=== PATIENT | female | born 1990 | race Caucasian/White ===

== ENCOUNTER → 2023-10-25 13:40 | Outpatient (BNVA) | payer BC, MEDICAID, SELFPAY | PROVIDERS: Visit Provider Nurse Practitioner Women's Health | DX: Z32.00 Encounter for pregnancy test, result unknown (principal); N92.6 Irregular menstruation, unspecified | CPT/HCPCS: 81025 ==

== ENCOUNTER → 2023-11-23 14:22 | Outpatient (BNVA) | payer BC, MEDICAID, SELFPAY | PROVIDERS: Visit Provider Nurse Practitioner Women's Health | DX: Z36.87 Encounter for antenatal screening for uncertain dates (principal) | CPT/HCPCS: 76801 ==

== ENCOUNTER → 2023-11-29 12:56 | Outpatient (BNVA) | payer BC, MEDICAID, SELFPAY | PROVIDERS: Visit Provider Nurse Practitioner Women's Health | DX: Z34.90 Encounter for supervision of normal pregnancy, unspecified, unspecified trimester (principal); Z34.80 Encounter for supervision of other normal pregnancy, unspecified trimester | CPT/HCPCS: 80307; 81000; 85025; 86592; 86762; 86803; 86850; 86900; 87086; 87340; 87806 ==

== ENCOUNTER → 2023-12-28 08:02 | Outpatient (BNVA) | payer BC, MEDICAID, SELFPAY | PROVIDERS: Visit Provider Obstetrics & Gynecology | DX: Z34.80 Encounter for supervision of other normal pregnancy, unspecified trimester (principal) | CPT/HCPCS: 84315; 87491; 87591; 88175 ==

== ENCOUNTER → 2024-01-18 09:12 | Outpatient (BNVA) | payer BC, MEDICAID, SELFPAY | PROVIDERS: Visit Provider Obstetrics & Gynecology | DX: Z34.82 Encounter for supervision of other normal pregnancy, second trimester (principal) | CPT/HCPCS: 76805 ==

== ENCOUNTER → 2024-02-15 10:27 | Outpatient (BNVA) | payer BC, MEDICAID, SELFPAY | PROVIDERS: Visit Provider Obstetrics & Gynecology | DX: Z34.80 Encounter for supervision of other normal pregnancy, unspecified trimester (principal) | CPT/HCPCS: 76816 ==

== ENCOUNTER → 2024-03-11 08:37 | Outpatient (BNVA) | payer BC, MEDICAID, SELFPAY | PROVIDERS: Visit Provider Obstetrics & Gynecology | DX: Z34.80 Encounter for supervision of other normal pregnancy, unspecified trimester (principal) | CPT/HCPCS: 84315; 85025 ==

== ENCOUNTER → 2024-03-14 09:33 | Outpatient (BNVA) | payer BC, MEDICAID, SELFPAY | PROVIDERS: Visit Provider Obstetrics & Gynecology | DX: Z34.80 Encounter for supervision of other normal pregnancy, unspecified trimester (principal) | CPT/HCPCS: 82950 ==

== ENCOUNTER → 2024-04-23 11:41 | Outpatient (BNVA) | payer BC, MEDICAID, SELFPAY | PROVIDERS: Visit Provider Nurse Practitioner Women's Health | DX: Z34.80 Encounter for supervision of other normal pregnancy, unspecified trimester (principal) | CPT/HCPCS: 76816 ==

== ENCOUNTER → 2024-05-06 08:25 | Outpatient (BNVA) | payer BC, MEDICAID, SELFPAY | PROVIDERS: Visit Provider Obstetrics & Gynecology | DX: Z34.80 Encounter for supervision of other normal pregnancy, unspecified trimester (principal); F80.9 Developmental disorder of speech and language, unspecified | CPT/HCPCS: 84315; 87081 ==

== ENCOUNTER 2024-05-31 17:50 | Outpatient (CLI) | payer BC, MEDICAID, SELFPAY ==
[2024-05-31 17:50] VITALS: BMI 31.2
[2024-05-31 18:01] VITALS: BP 132/84; PULSE 92
[2024-05-31 18:20] LABS: Nitrazine Paper, PH Inconclusive
[2024-05-31 18:21] VITALS: BP 137/70; PULSE 96
[2024-05-31 18:28] LABS: Actim Prom Negative
[2024-05-31 18:42] VITALS: BP 122/66; PULSE 96
== END 2024-05-31 18:57 | disposition home or self-care (01) ==
LOC: OPOB 17:55 → OBGYN 17:56
PROVIDERS: Visit Provider Obstetrics & Gynecology
DX: O26.899 Other specified pregnancy related conditions, unspecified trimester (principal); Z3A.00 Weeks of gestation of pregnancy not specified; N89.8 Other specified noninflammatory disorders of vagina
CPT/HCPCS: 59025; 83986; 84112; 99211

== ENCOUNTER → 2024-06-06 10:04 | Outpatient (BNVA) | payer BC, MEDICAID, SELFPAY | PROVIDERS: Visit Provider Obstetrics & Gynecology | DX: Z34.80 Encounter for supervision of other normal pregnancy, unspecified trimester (principal) | CPT/HCPCS: 76819; 84315 ==

== ENCOUNTER 2024-06-07 15:27 | Inpatient (IN) | payer BC, MEDICAID, SELFPAY ==
[2024-06-07 11:11] VITALS: BP 115/71; PULSE 104
[2024-06-07 12:32] VITALS: BP 118/74; PULSE 88
[2024-06-07 12:47] VITALS: BP 124/75; PULSE 88
--- NOTE | 2024-06-07 13:01 | PM.OPHPUD ---
Labor & Delivery H&P Update Date of Procedure: June 07, 2024 Date H&P Performed: 06/06/24 H&P update information: I have reviewed H&P completed within last 30 days, I have examined patient prior to procedure and Changes to prior documentation as noted here (cervix: 5-6 cm dilation) Admission Diagnosis:
--- NOTE | 2024-06-07 13:09 | P.PN_ITS ---
Subjective Subjective: Ms. Dave is a 33 year old established patient with LMP of 09/01/2023, ERNESTO 06/01/2024 based off of 12 week dating ultrasound, placing her at 40-6/7 weeks Vitals/I&O/Wt Last Vital Signs Pulse 88 06/07/24 12:47 BP 124/75 06/07/24 12:47 Physical Exam Narrative: GA: Alert and oriented ?3. Lungs: Clear to auscultation bilaterally. Heart: Regular rhythm and rate. Abdomen: Gravid, full the height equals dates, nontender. 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 Extremities: no edema, no cyanosis, no calves pain. heart tracing: Basal rate: 140's bpm, Variability: moderate, Accelerations: present, Decelerations: absent, Contraction: [q3min]. A&P Assessment and plan (1) Term : Ms. Dave is a 33 year old established patient with LMP of 09/01/2023, ERNESTO 06/01/2024 based off of 12 week dating ultrasound, placing her at 40-5/7 weeks, came to labor and delivery with contractions pain. Cervix dilated to 5 to 6 cm. She is GBS positive and prophylactic antibiotic was ordered but the patient refused to receive prophylactic antibiotics for GBS. heart tracing category 1. Anticipate vaginal delivery Attestations Medical Necessity Statement*: In my professional opinion per admitting diagnosis. Coding Level of Care Code Acute Code for Chg Fwd Diagnoses Term Z34.90
[2024-06-07 14:44] VITALS: BMI 30.9
[2024-06-07 15:35] VITALS: BP 133/75; PULSE 82
[2024-06-07 15:55] VITALS: BP 135/76; PULSE 87
[2024-06-07 20:32] LABS: Basophils % 0.3 %; Eosinophils # 0.1 10^3/uL (0.0-0.8); Eosinophils % 0.9 %; Hematocrit 37.4 % (36-47); Lymphocytes # 1.2 10^3/uL (0.8-4.8); Lymphocytes % 15.6 %; Mean Corpuscular HGB Conc 32.1 g/dL (30-55); Mean Corpuscular Hemoglobin 27.6 pg (27-33); Mean Platelet Volume 10.5 fL (7.4-10.4); Monocytes # 0.7 10^3/uL (0.2-0.9); Monocytes % 8.4 %; Neutrophils # 5.88 10^3/uL (1.8-7.7); Neutrophils % 73.8 %; Nucleated Red Blood Cells % 0 %; Platelet Count 248 10^3/cmm (157-399); Red Blood Count 4.35 10^6/uL (3.85-5.65); Red Cell Distribution Width 13.2 % (12.1-15.1); White Blood Count 7.96 10^3/uL (3.29-11.43)
[2024-06-07 21:16] VITALS: BP 135/60; PULSE 105; TEMP 36.6
[2024-06-08] VITALS (15 sets, daily range): BP systolic 109–135; BP diastolic 56–78; PULSE 64–107; RESP 16; TEMP 36.7–37
--- NOTE | 2024-06-08 01:53 | PM.DELIVERY ---
Delivery Note: Date of delivery: June 08, 2024 Pre-delivery diagnoses: Term Post-delivery diagnoses: Term delivered Shoulder dystocia Procedure: Spontaneous vaginal delivery Delivering Physician: Dada Fernandez MD Estimated blood loss (mL): 300 Findings: Term female , weight 4155g, Apgars 8/9 Pre-Delivery Course: Ms. Dave is a 33 year old established patient with LMP of 09/01/2023, ERNESTO 06/01/2024 based off of 12 week dating ultrasound, placing her at 40-6/7 weeks who has been receiving [place] [facility]. She has been experiencing painful uterine contractions for the past 4 hours. The contractions are occurring at 4 minute intervals with approximately 30 second duration. She continues to feel movement between the contractions. She denies vaginal bleeding or rupture of membranes. CC: Onset of labor at term. HPI: Received appropriate care. Daily vitamins since start of care. labs have all been normal, including negative for HIV. She was found to positive for Group B Strep from screening at 36 weeks. She has gained approximately 27.11 lbs throughout the . She denies a history of HTN during . Glucose tolerance screening for gestational diabetes was negative. Delivery: The patient was noted to be complete and pushing, so was placed in the dorsal lithotomy position, prepped and draped in the usual sterile fashion for a vaginal delivery. Pt. Noted to have epidural anesthesia. At 0123 the patient delivered a viable term female infant weighing 4155 g with scores of 8 and 9 at one and five minutes, respectively. The vertex was delivered spontaneously over intact perineum. The patient was asked to push and the head delivered spontaneously in the CLAUDIA position, over an intact perineum. A nuchal cord was checked and none noted. A 5-second dystocia was noted that was resolved with the Júnior maneuver. The anterior shoulder delivered easily and the posterior shoulder followed. The remainder of the infant was easily delivered and the oropharynx and nasopharynx was bulb suctioned. The was noted to have spontaneous cry and spontaneous movement of all four extremities. The cord was clamped x 2 and cut and noted to have 2 arteries and one vein. The infant was passed to the mother's abdomen where nursing personnel were in attendance. Her blood sample was then obtained. The placenta delivered intact spontaneously and the uterus was explored. 20 units of Pitocin was placed in the IV bag to firm the uterus. Examination of the cervix and vaginal vault did not reveal any lacerations. A vaginal pack was then placed. Examination of the perineum showed first-degree laceration. The laceration was repaired with 3-0 Vicryl in the normal fashion in a running non locking fashion to reapproximate the laceration in layers. The vaginal pack was then removed. The patient tolerated this procedure well, and recovered in L&D with her in their LDR room. All sponge and needle counts were correct. Post-Delivery Status: Good and stable History History History 3 Term 2 0 Miscarriages/Ectopic 0 Living Children 2 A&P Assessment and plan (1) Term delivered: Plan observation Coding Level of Care Code Acute Code for Chg Fwd Diagnoses Term delivered O80
[2024-06-08] MEDS: ibuprofen 800 mg tablet PO ×3 (08:59→23:01)
[2024-06-08 15:03] LABS: Hematocrit 32.7 % (36-47); Mean Corpuscular HGB Conc 32.7 g/dL (30-55); Mean Corpuscular Hemoglobin 27.5 pg (27-33); Mean Corpuscular Volume 84.1 fl (85-98); Mean Platelet Volume 10.5 fL (7.4-10.4); Platelet Count 215 10^3/cmm (157-399); Red Blood Count 3.89 10^6/uL (3.85-5.65); Red Cell Distribution Width 13.2 % (12.1-15.1); White Blood Count 9.83 10^3/uL (3.29-11.43)
[2024-06-09 03:34] VITALS: BP 124/76; PULSE 76; RESP 16; TEMP 36.7
[2024-06-09 04:50] VITALS: BP 104/74; PULSE 86; RESP 16; TEMP 36.8; O2SAT 97
--- NOTE | 2024-06-09 10:31 | PM.OBGYDC ---
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 Dave is a 33 year old established patient with LMP of 09/01/2023, ERNESTO 06/01/2024 based off of 12 week dating ultrasound, placing her at 40-6/7 weeks. She came to labor and delivery in active labor, declined IV and prophylactic antibiotics for GBS. She progressed to have a spontaneous vaginal delivery without complications. She delivered a term female with a birthweight 4155 g and scores of 8 and 9. observation uneventful. She is afebrile hemodynamically stable day 1. Tolerating diet well. Ambulating without difficulty. She was counseled via a digital supervisor dimension warehouse in her phone regarding pelvic rest for 6 weeks (no sex, no tampons, no vaginal douches). Return to the emergency room if any fever, increased bleeding or pain. Her and her were also counseled regarding all methods of contraception, indications, contraindications, failure rate, risks, side effects and complications. Information Peripartum Data: Delivery Method: Vaginal Physical Exam Narrative: GA; alert and oriented x 3 HEENT: normal Breasts: engorged Nipples - skin intact Lungs; clear to auscultation Heart: regular rhythm, no murmurs. Abd: Appropriately tender. BS+. Uterine fundus below umbilicus. No Fundal Tenderness. Perineum: normal lochia. Extremities: no edema, no cyanosis, no tenderness. History History History 3 Term 2 0 Miscarriages/Ectopic 0 Living Children 2 Discharge Data Studies Completed and Pending Laboratory Results WBC 9.83 10^3/uL (3.29-11.43) 06/08/24 14:50 RBC 3.89 10^6/uL (3.85-5.65) 06/08/24 14:50 Hgb 10.70 g/dL (11.27-16.99) L 06/08/24 14:50 Hct 32.7 % (36-47) L 06/08/24 14:50 MCV 84.1 fl (85-98) L 06/08/24 14:50 MCH 27.5 pg (27-33) 06/08/24 14:50 MCHC 32.7 g/dL (30-55) 06/08/24 14:50 RDW 13.2 % (12.1-15.1) 06/08/24 14:50 Plt Count 215 10^3/cmm (157-399) 06/08/24 14:50 MPV 10.5 fL (7.4-10.4) H 06/08/24 14:50 Neut % (Auto) 73.8 % 06/07/24 19:46 Lymph % (Auto) 15.6 % 06/07/24 19:46 Graves % (Auto) 8.4 % 06/07/24 19:46 Eos % (Auto) 0.9 % 06/07/24 19:46 Baso % (Auto) 0.3 % 06/07/24 19:46 Neut # (Auto) 5.88 10^3/uL (1.8-7.7) 06/07/24 19:46 Lymph # (Auto) 1.2 10^3/uL (0.8-4.8) 06/07/24 19:46 Graves # (Auto) 0.7 10^3/uL (0.2-0.9) 06/07/24 19:46 Eos # (Auto) 0.1 10^3/uL (0.0-0.8) 06/07/24 19:46 Baso # (Auto) 0.0 10^3/uL (0.0-0.1) 06/07/24 19:46 Nucleated RBC % (auto) 0 % 06/07/24 19:46 Nucleated RBCs # 0.0 /100WBC 06/07/24 19:46 Blood Type O Positive 06/07/24 19:46 Rho(D) Type Rh positive 06/07/24 19:46 Antibody Screen Negative 06/07/24 19:46 Vitals Last Vital Signs Temp 98.2 F 06/09/24 04:50 Pulse 86 06/09/24 04:50 Resp 16 06/09/24 04:50 BP 104/74 06/09/24 04:50 Pulse Ox 97 06/09/24 04:50 O2 Del Method Room Air 06/09/24 04:50 Results Labs OB ([facility]): Obstetrics US 04/23/24 Obstetrics US/Biophysical Profile 06/06/24 Blood Type O Positive 06/07/24 Antibody Screen Negative 06/07/24 Hct 32.7 % (36-47) L 06/08/24 Hgb 10.70 g/dL (11.27-16.99) L 06/08/24 Rho(D) Type Rh positive 06/07/24 Plt Count 215 10^3/cmm (157-399) 06/08/24 Hep Bs Antigen Non-reactive (Nonreactive) 11/29/23 Hepatitis C Antibody Non-reactive (Nonreactive) 11/29/23 Rubella IgG Antibody 46.4 IU/mL (0.0-10.0) H 11/29/23 RPR Nonreactive (Nonreactive) 11/29/23 HIV 1&2 Ab & HIV 1 Ag Non-reactive (Non-Reactiv) 11/29/23 C.trachomatis RNA (TMA) Not detected (NOT DETECTED) 12/28/23 N.gonorrhoeae RNA (TMA) Not detected (NOT DETECTED) 12/28/23 T. vaginalis Amp RNA Not detected (NOT DETECTED) 12/28/23 Chlamydia/GC Comment See note 12/28/23 Cystic Fibrosis Screen Negative 11/29/23 Glucose 1 Hr 50 gm 138 mg/dL (85-140) 03/14/24 HCG, Qual Positive (Negative) H 10/25/23 Urine Opiates Screen Negative ng/mL (Negative) 11/29/23 Ur Barbiturates Screen Negative ng/mL (Negative) 11/29/23 Ur Phencyclidine Scrn Negative ng/mL (Negative) 11/29/23 Ur Amphetamines Screen Negative ng/mL (Negative) 11/29/23 U Benzodiazepines Scrn Negative ng/mL (Negative) 11/29/23 Urine Cocaine Screen Negative ng/mL (Negative) 11/29/23 U Marijuana (THC) Screen Negative ng/mL (Negative) 11/29/23 Micro Urine Specimen 11/29/23 Pap Smear Interpret See note 12/28/23 Discharge Plan Discharge Patient Disposition: Home Condition: Stable Prescriptions: New acetaminophen 325 mg capsule 325 mg PO Q4H PRN (Reason: fever or pain) Qty: 60 0RF docusate sodium [Colace] 100 mg capsule 100 mg PO BID Qty: 60 0RF ibuprofen 800 mg tablet 800 mg PO TID PRN (Reason: pain) Qty: 60 0RF ferrous sulfate [Iron (ferrous sulfate)] 325 mg (65 mg iron) tablet 325 mg PO BID Qty: 60 0RF Continued magnesium 250 mg Tablet 250 mg PO DAILY 28 mg iron- 800 mcg Tablet 1 tab PO DAILY Discharge Orders: Discharge Order (Routine); Ordered 06/09/24 Ordered By: Dada Fernandez Referrals: Dada Fernandez MD [Physician] - 6 Weeks Discharge Diet: Usual diet Discharge Activity: Limit activity as instructed Patient Instructions: Choosing Between Vaginal After () or Repeat... (GEN), Caring for Your Baby (GEN), Bleeding (GEN), Perineal Tear with Delivery (GEN), Vaginal Delivery (GEN), Your [place]'s Appearance (GEN), Opioid Safety Activity Restrictions/Additional Instructions: 1. Please call [facility] on next working day to make your appointment in 6 weeks. 2. Please stay home until you come back to the clinic on first post-hospatilization check up. 3. Please follow instructions on your medications CAREFULLY. 4. If you have abdominal incision, do not cover it unless dressing is necessary because of drainage. OK to shower, but avoid bath. Leave steri-strips until they fall off. If they are still on one week after surgery, you may remove them. 5. If you had vaginal surgery or vaginal repair, Dr. Fernandez may instruct you to take SITZ bath. 6. Yellow, blood tinged odorous vaginal discharge is usually normal after hysterectomy or vaginal surgeries. 7. No SEXUAL INTERCOURSE, tampons, or douches until you are completely released from the post-operative care. 8. Avoid constipation by eating right and maybe using some Metamucil or Milk of Magnesia. 9. All prescription refills are given during the working hours. Please do no wait till it runs out. Call the clinic at [phone] before your medication runs out. The clinic will get in touch with your doctor to prescribe medications if necessary. 10. Please remain within 40 mile radius from our hospital because emergencies do happen now and then during the post-operative period. 11. If you have stairs at home, take one step at a time slowly and minimize the number of trips. It helps to stay in one floor for the next few days. No lifting except what you can lift by one hand until you are released from the post-operative care. 12. Driving is discouraged until you are well healed. It may be 3-4 weeks before you feel strong enough to drive. You should be able to turn and look through the rear window without pain and you should be able to push the brake pedal very hard without pain before you drive. No fast rules, but SAFETY should be your primary concern. DO NOT drive if you are on sedating medications such as narcotics. 13. Call the clinic (during working hours) to make urgent appointment or go to the Emergency room, if any of the following occurs: i. Vaginal bleeding becomes heavy, more than a period. ii. Incision becomes red and sore, or drains pus. iii. Your TEMPERATURE is over 100.4F or you have chill. iv. IV site becomes red and swollen (a little ``knot?? is usually OK) v. Persistent nausea and vomiting vi. Persistent constipation or diarrhea vii. Rash or allergic reaction to medications. 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
[2024-06-09 10:35] VITALS: BP 120/78; PULSE 74; RESP 16; TEMP 36.7
[2024-06-09] MEDS: ibuprofen 800 mg tablet PO (13:33)
[2024-06-09 13:51] VITALS: BP 122/75; PULSE 80; RESP 16; TEMP 36.7
== END 2024-06-09 13:53 | disposition home or self-care (01) | DRG 807 ==
LOC: OPOB 15:27 → OBGYN 15:27
PROVIDERS: Admitting Provider Obstetrics & Gynecology; Visit Provider Obstetrics & Gynecology
DX: O99.824 Streptococcus B carrier state complicating childbirth (principal); Z37.0 Single live birth; O48.0 Post-term pregnancy; Z3A.40 40 weeks gestation of pregnancy; O70.0 First degree perineal laceration during delivery; O66.0 Obstructed labor due to shoulder dystocia
CPT/HCPCS: 36415; 59025; 59409; 83986; 85025; 85027; 86850; 86900; 99211